=== PATIENT | male | born 1965 | race Two or more races ===

== ENCOUNTER 2022-02-03 17:02 | Emergency (ER) | payer OTHER ==
[~2022-02-03] VITALS: Ht 167.6 cm; Wt 68.0 kg
[2022-02-03] MEDS ORDERED: IBERSARTAN 150 MG. (18:31)
== END 2022-02-03 20:58 | disposition home or self-care (01) ==
LOC: ER 17:02
DX: I10 Essential (primary) hypertension (principal); R07.89 Other chest pain